=== PATIENT | female | born 1990 ===

== ENCOUNTER 2016-12-22 18:28 | Emergency (ER) | payer SELFPAY ==
[2016-12-22 18:36] VITALS: BP 117/73; PULSE 100; RESP 18; TEMP 98.2; O2SAT 100
--- NOTE | 2016-12-22 19:06 | ED PDOC ---
HPI: Chest Pain Time Seen by Provider: 12/22/16 18:30 Chief Complaint (Nursing): Chest Pain Chief Complaint (Provider): Central chest pain x 4 hours, cough x 1 week History Per: Patient History/Exam Limitations: no limitations Onset/Duration Of Symptoms: Days Current Symptoms Are (Timing): Still Present Severity: Moderate Pain Scale Rating Of: 6 Front/Back of Body, Lg (Color): 1 - Pain Exacerbating Factors: Deep Breathing Alleviating Factors: None Additional Complaint(s): No similar in the past. No fever/chills. PT reports yellow phlegm. Pt is not taking any medications at home for pain, daily or OCP. Past Medical History Reviewed: Historical Data, Nursing Documentation, Vital Signs Vital Signs: Last Vital Signs Temp 98.2 F 12/22/16 18:33 Pulse 100 H 12/22/16 18:33 Resp 18 12/22/16 18:33 BP 117/73 12/22/16 18:33 Pulse Ox 100 12/22/16 18:33 - Medical History PMH: Asthma Denies: Chronic Kidney Disease - Surgical History Surgical History: No Surg Hx - Family History Family History: States: No Known Family Hx - Living Arrangements Living Arrangements: With Family - Social History Current smoker - smoking cessation education provided: No Alcohol: None Drugs: Denies - Allergies Allergies/Adverse Reactions: Allergies Allergy/AdvReac Type Severity Reaction Status Date / Time No Known Allergies Allergy Verified 12/22/16 18:52 Review of Systems ROS Statement: Except As Marked, All Systems Reviewed And Found Negative Cardiovascular: Positive for: Chest Pain Respiratory: Positive for: Cough. Negative for: Shortness of Breath Physical Exam - Reviewed Nursing Documentation Reviewed: Yes Vital Signs Reviewed: Yes - Physical Exam Appears: Positive for: Well, Non-toxic, No Acute Distress Head Exam: Positive for: ATRAUMATIC, NORMAL INSPECTION, NORMOCEPHALIC Skin: Positive for: Normal Color, Warm, DRY Eye Exam: Positive for: Normal appearance ENT: Positive for: Normal ENT Inspection Neck: Positive for: Normal, Painless ROM Cardiovascular/Chest: Positive for: Regular Rate, Rhythm Respiratory: Positive for: Normal Breath Sounds. Negative for: Accessory Muscle Use, Respiratory Distress Gastrointestinal/Abdominal: Positive for: Normal Exam, Bowel Sounds, Soft Back: Positive for: Normal Inspection Extremity: Positive for: Normal ROM Neurologic/Psych: Positive for: Alert, Oriented - ECG O2 Sat by Pulse Oximetry: 100 Medical Decision Making Medical Decision Making: Endorsed pending labs and re-evaluation. Disposition - Clinical Impression Clinical Impression: Chest pain, Cough - Patient ED Disposition Is Patient to be Admitted: Transfer of Care - Disposition Disposition: Transfer of Care Disposition Time: 20:00 Condition: GOOD
[2016-12-22 19:44] LABS: HEMATOCRIT 42.6 % (34.0-47.0); MEAN CELL VOLUME 85.2 fl (81.0-99.0); MEAN CORPUSCULAR HEMOGLOBIN 28.2 pg (27.0-31.0); RED CELL DISTRIBUTION WIDTH 13.5 % (11.5-14.5); WHITE BLOOD COUNT 8.4 K/uL (4.8-10.8)
[2016-12-22 19:51] LABS: ALB/GLOB RATIO 1.5 (1.0-2.1); ALKALINE PHOSPHATASE 94 U/L (38-126); ALT/SGPT 40 U/L (9-52); AST/SGOT 23 U/L (14-36); BILIRUBIN,TOTAL 0.3 mg/dl (0.2-1.3); BLOOD UREA NITROGEN 15 mg/dl (7-17); CALCIUM 9.3 mg/dL (8.4-10.2); CARBON DIOXIDE 24 mmol/L (22-30); CHLORIDE 105 mmol/L (98-107); GFR AFRICAN-AMERICAN > 60; GLUCOSE,RANDOM 106 mg/dL (65-105); POTASSIUM 3.9 MMOL/L (3.6-5.0); SODIUM 140 mmol/l (132-148); TOTAL PROTEIN 7.4 G/DL (6.3-8.2)
--- NOTE | 2016-12-22 23:20 | ED PDOC ---
- Laboratory Results Result Diagrams: 12/22/16 19:30 12/22/16 19:30 - ECG O2 Sat by Pulse Oximetry: 100 - Radiology X-Ray: Viewed By Me X-Ray Interpretation: No Acute Disease - Progress ED Course And Treament: Case endorsed to mortgage or loan underwriter from [employer] pending labs, xray Patient educated on findings, discharged with rx albuterol neb, albuterol hfa, zpak, flonase. Advised ibuprofen PRN pain. Follow up PMD 2-3 days. Return to ED for worsening/concerning symptoms. Disposition - Clinical Impression Clinical Impression: Chest pain, Bronchitis - POA Present On Arrival: None - Disposition Disposition: Routine/Home Disposition Time: 23:26 Condition: IMPROVED Prescriptions: Albuterol 0.083% [Albuterol Sulfate 3 Ml] 1 vial IH TID PRN #30 vial PRN Reason: Cough Albuterol HFA [Ventolin HFA 90 mcg/actuation (8 g)] 1 puff IH Q4 PRN #1 inh PRN Reason: Wheezing Azithromycin [Zithromax] 250 mg PO DAILY #1 packet Fluticasone Nasal [Flonase] 1 actuation NS BID #1 bottle Instructions: Acute Bronchitis (ED) Print Language: BRITISH
--- NOTE | 2016-12-23 08:05 | CARD ---
APPROVED REPORT EKG Measurement Heart [id number] <Conclusion> Normal sinus rhythm Rightward axis Pulmonary disease pattern Abnormal ECG
--- NOTE | 2016-12-23 14:15 | RAD ---
HISTORY: central chest pain, cough for 1 week COMPARISON: No prior. TECHNIQUE: Chest PA and lateral FINDINGS: LUNGS: There is a 7 mm nodular opacity in the right upper lobe projecting on the medial clavicle. PLEURA: No significant pleural effusion identified. No pneumothorax apparent. CARDIOVASCULAR: Normal. OSSEOUS STRUCTURES: There is a probable exostosis in the anterior left 2nd rib. VISUALIZED UPPER ABDOMEN: Normal. OTHER FINDINGS: None. IMPRESSION: No active pulmonary disease. Question of 7 mm calcified granuloma in the right upper lobe. Question of left anterior 2nd rib exostosis. CT scan of the chest without intravenous contrast would be helpful for further evaluation.
== END 2016-12-22 23:49 | disposition home or self-care (01) ==
LOC: H.ER 18:28 → EDBD 18:28 → H.ER 23:49
DX: J40 Bronchitis, not specified as acute or chronic (principal); R05 Cough; J45.909 Unspecified asthma, uncomplicated; R07.9 Chest pain, unspecified